=== PATIENT | male | born 1980 | race Caucasian/White ===

== ENCOUNTER 2020-12-12 10:31 | Emergency (ER) | payer BC ==
[2020-12-12 10:40] VITALS: TEMP 97.9
[2020-12-12] MEDS ORDERED: SODIUM CHLORIDE 0.9% 1,000 ML IV STA (11:09)
[2020-12-12] MEDS ORDERED: KETOROLAC 15 MG/ML 1 ML VIAL IVP STA (11:09)
[2020-12-12 11:33] LABS: Basophils # (A) 0.1 k/uL (0-0.2); Basophils % (A) 1 %; Eosinophils # (A) 0.1 k/uL (0-0.7); Eosinophils % (A) 2 %; HCT 44.9 % (39.0-53.0); HGB 15.7 gm/dL (13.0-17.5); Lymphocytes # (A) 1.7 k/uL (1.0-4.8); Lymphocytes % (A) 25 %; MCH 31.8 pg (25.0-35.0); MCV 90.9 fL (80.0-100.0); Mean Platelet Volume 7.4; Monocytes # (A) 0.3 k/uL (0-1.0); Monocytes % (A) 4 %; Neutrophils # (A) 4.4 k/uL (1.3-7.7); Neutrophils % (A) 67 %; Platelet Count 213 k/uL (150-450); RBC 4.94 m/uL (4.30-5.90); RDW 12.9 % (11.5-15.5); WBC 6.5 k/uL (3.8-10.6)
--- NOTE | 2020-12-12 11:40 | ED ---
General Adult HPI - General Chief complaint: Abdominal Pain Stated complaint: Abdominal Pain Time Seen by Provider: 12/12/20 10:40 Source: patient, RN notes reviewed, old records reviewed Mode of arrival: ambulatory Limitations: no limitations - History of Present Illness Initial comments: This is a 39-year-old male presents emergency Department complaining of right- sided abdominal pain starting in the flank going down to his testicle. Patient states started 1 hour prior to arrival. Patient states it was sudden onset. Patient denies any vomiting but states he is very nauseated. Patient also is states that within the last 5 minutes prior to my arrival symptoms greatly decrease in his pain is only a 3 out of 10. Patient denies any chest pain difficult breathing shortness of breath per patient states any diarrhea. Patient denies any pain to palpation. Patient denies any similar symptoms in the past. Patient states he has no medical problems. Patient denies any history of kidney stones. Patient denies any dysuria hematuria urinary fr equency. - Related Data Allergies Allergy/AdvReac Type Severity Reaction Status Date / Time naproxen [From Aleve] Allergy Rash/Hives Verified 12/12/20 10:40 Review of Systems ROS Statement: Those systems with pertinent positive or pertinent negative responses have been documented in the HPI. ROS Other: All systems not noted in ROS Statement are negative. Past Medical History Past Medical History: No Reported History History of Any Multi-Drug Resistant Organisms: None Reported Past Surgical History: No Surgical Hx Reported Past Psychological History: No Psychological Hx Reported Smoking Status: Never smoker Past Alcohol Use History: None Reported Past Drug Use History: None Reported General Exam - General Exam Comments Initial Comments: GENERAL: Patient is well-developed and well-nourished. Patient is nontoxic and well- hydrated and is in mild distress. ENT: Neck is soft and supple. No significant lymphadenopathy is noted. Oropharynx is clear. Moist mucous membranes. Neck has full range of motion without el iciting any pain. EYES: The sclera were anicteric and conjunctiva were pink and moist. Extraocular movements were intact and pupils were equal round and reactive to light. Eyelids were unremarkable. PULMONARY: Unlabored respirations. Good breath sounds bilaterally. No audible rales rhonchi or wheezing was noted. CARDIOVASCULAR: There is a regular rate and rhythm without any murmurs gallops or rubs. ABDOMEN: Soft and nontender with normal bowel sounds. GENITALIA: On examination of his scrotum and testicle is in no abnormalities and no significant tenderness SKIN: Skin is clear with no lesions or rashes and otherwise unremarkable. NEUROLOGIC: Patient is alert and oriented x3. Cranial nerves II through XII are grossly intact. Motor and sensory are also intact. Normal speech, volume and content. Symmetrical smile. MUSCULOSKELETAL: Normal extremities with adequate strength and full range of motion. LYMPHATICS: No significant lymphadenopathy is noted PSYCHIATRIC: Normal psychiatric evaluation. Limitations: no limitations Course Vital Signs 12/12/20 10:37 Temperature 97.9 F Pulse Rate 56 L Respiratory 24 Rate Blood Pressure 193/89 O2 Sat by Pulse 98 Oximetry Medical Decision Making - Medical Decision Making CAT scan of the abdomen and pelvis shows a 3 mm stone that is passed into the bladder. Patient does have some mild hydro-on the right. Patient is symptom- free at this stage. - Lab Data Result diagrams: 12/12/20 11:22 12/12/20 11:22 Lab Results 12/12/20 12/12/20 12/12/20 Range/Units 11:22 11:22 11:22 WBC 6.5 (3.8-10.6) k/uL RBC 4.94 (4.30-5.90) m/uL Hgb 15.7 (13.0-17.5) gm/dL Hct 44.9 (39.0-53.0) % MCV 90.9 (80.0-100.0) fL MCH 31.8 (25.0-35.0) pg MCHC 35.0 (31.0-37.0) g/dL RDW 12.9 (11.5-15.5) % Plt Count 213 (150-450) k/uL MPV 7.4 Neutrophils % 67 % Lymphocytes % 25 % Monocytes % 4 % Eosinophils % 2 % Basophils % 1 % Neutrophils # 4.4 (1.3-7.7) k/uL Lymphocytes # 1.7 (1.0-4.8) k/uL Monocytes # 0.3 (0-1.0) k/uL Eosinophils # 0.1 (0-0.7) k/uL Basophils # 0.1 (0-0.2) k/uL Sodium 141 (137-145) mmol/L Potassium 3.8 (3.5-5.1) mmol/L Chloride 108 H (98-107) mmol/L Carbon Dioxide 23 (22-30) mmol/L Anion Gap 10 mmol/L BUN 8 L (9-20) mg/dL Creatinine 0.82 (0.66-1.25) mg/dL Est GFR (CKD-EPI)AfAm >90 (>60 ml/min/1.73 sqM) Est GFR (CKD-EPI)NonAf >90 (>60 ml/min/1.73 sqM) Glucose 167 H (74-99) mg/dL Calcium 9.3 (8.4-10.2) mg/dL Total Bilirubin 0.8 (0.2-1.3) mg/dL AST 55 (17-59) U/L ALT 48 (4-49) U/L Alkaline Phosphatase 63 (38-126) U/L Total Protein 7.8 (6.3-8.2) g/dL Albumin 4.6 (3.5-5.0) g/dL Amylase 84 (30-110) U/L Lipase 210 (23-300) U/L Urine Color Yellow Urine Appearance Cloudy (Clear) Urine pH 6.5 (5.0-8.0) Ur Specific [place] 1.023 (1.001-1.035) Urine Protein 1+ H (Negative) Urine Glucose (UA) Negative (Negative) Urine Ketones Negative (Negative) Urine Blood Large H (Negative) Urine Nitrite Negative (Negative) Urine Bilirubin Negative (Negative) Urine Urobilinogen <2.0 (<2.0) mg/dL Ur Leukocyte Esterase Negative (Negative) Urine RBC >182 H (0-5) /hpf Urine WBC 1 (0-5) /hpf Amorphous Sediment Rare H (None) /hpf Urine Bacteria Rare H (None) /hpf Urine Mucus Many H (None) /hpf Disposition Clinical Impression: Kidney stone Disposition: HOME SELF-CARE Condition: Good Instructions (If sedation given, give patient instructions): Kidney Stones (ED) Is patient prescribed a controlled substance at d/c from ED?: No Referrals: None,Stated [Primary Care Provider] - 1-2 days Time of Disposition: 12:16
[2020-12-12 11:46] LABS: ALT 48 U/L (4-49); African American GFR (CKD) >90 (>60 ml/min/1.73 sqM); Albumin 4.6 g/dL (3.5-5.0); Amylase 84 U/L (30-110); Anion Gap 10 mmol/L; Blood Urea Nitrogen 8 mg/dL (9-20); Calcium 9.3 mg/dL (8.4-10.2); Carbon Dioxide 23 mmol/L (22-30); Chloride 108 mmol/L (98-107); Glucose 167 mg/dL (74-99); Lipase 210 U/L (23-300); Non-African American GFR(CKD) >90 (>60 ml/min/1.73 sqM); Sodium 141 mmol/L (137-145); Total Bilirubin 0.8 mg/dL (0.2-1.3); Total Protein 7.8 g/dL (6.3-8.2)
--- NOTE | 2020-12-12 11:49 | XR ---
EXAMINATION TYPE: XR KUB DATE OF EXAM: 12/12/2020 COMPARISON: NONE HISTORY: Pain TECHNIQUE: Single supine KUB image of the abdomen is obtained FINDINGS: Small bowel demonstrates no evidence for dilatation or air fluid levels. Gas and fecal material is seen in non-distended colon. No convincing evidence for pneumoperitoneum. No unusual calcifications. The lung bases are clear. The osseous structures are intact. IMPRESSION: 1. Overall nonobstructive bowel gas pattern.
[2020-12-12 11:52] LABS: AST 55 U/L (17-59); Alkaline Phosphatase 63 U/L (38-126); Potassium 3.8 mmol/L (3.5-5.1)
--- NOTE | 2020-12-12 11:52 | CT ---
EXAMINATION TYPE: CT abdomen pelvis wo con DATE OF EXAM: 12/12/2020 COMPARISON: none HISTORY: Right sided pain with urination changes CT DLP: 1297 mGycm Examination of the solid and hollow viscera is limited given the lack of contrast. FINDINGS: LUNG BASES: No evidence for nodule. No evidence for infiltrate. LIVER/GB: Fatty liver. The gallbladder is unremarkable. No space-occupying hepatic lesion. PANCREAS: No pancreatic mass identified. No inflammatory process seen. SPLEEN: No evidence for splenomegaly. No intrasplenic lesions seen. ADRENALS: No adrenal nodules identified. No evidence for thickening. KIDNEYS: No evidence for renal mass. Mild right-sided hydronephrosis secondary to a passed 3 mm calcu hoang which resides within the urinary bladder. No additional calculi seen. BOWEL: Appendix has a normal appearance. No evidence of bowel obstruction. No inflammatory process. Lymph nodes: No evidence for adenopathy greater than 1 cm. Abdominal aorta: Atheromatous changes seen. No evidence for aneurysm. Genital organs: No significant abnormality. Other: No significant abnormality. IMPRESSION: Mild right-sided hydronephrosis secondary to a passed 3 mm calculus which resides within the urinary bladder. No additional calculi seen.
[2020-12-12 11:53] LABS: Amorphous Sediment,Urine Rare /hpf; Appearance,Urine Cloudy (Clear); Bacteria,Urine Rare /hpf; Bilirubin,Urine Negative (Negative); Blood,Urine Large (Negative); Color,Urine Yellow; Glucose,Urine (UA) Negative (Negative); Ketones,Urine Negative (Negative); Leukocyte Esterase,Urine Negative (Negative); Mucus,Urine Many /hpf; Nitrite,Urine Negative (Negative); PH, Urine 6.5 (5.0-8.0); Protein,Urine 1+ (Negative); RBC,Urine >182 /hpf (0-5); Specific Gravity,Urine 1.023 (1.001-1.035); Urobilinogen,Urine <2.0 mg/dL (<2.0); WBC,Urine 1 /hpf (0-5)
[2020-12-12 12:31] VITALS: BP 133/88; PULSE 64; RESP 18
== END 2020-12-12 12:30 | disposition home or self-care (01) ==
LOC: EC 10:31
DX: N20.0 Calculus of kidney (principal)
CPT/HCPCS: 36415; 80053; 82150; 83690; 85025; 81001; 74018; 74176; 99284; 96374; 96361; J1885

== ENCOUNTER 2022-02-12 14:40 | Inpatient (IN) | payer BC ==
[2022-02-12] MEDS ORDERED: SODIUM CHLORIDE 0.9% 1,000 ML IV STA (15:28)
[2022-02-12] MEDS ORDERED: HYDROmorphone 0.5 MG/0.5 ML SYRINGE IVP STA (15:28)
--- NOTE | 2022-02-12 15:31 | ED ---
Abdominal Pain HPI - General Chief Complaint: Abdominal Pain Stated Complaint: Abd pain Time Seen by Provider: 02/12/22 15:22 Source: patient Mode of arrival: ambulatory Limitations: no limitations - History of Present Illness Initial Comments: Well-appearing 41-year-old male presents with right lower quadrant abdominal pain since yesterday. States started with generalized lower abdominal pain a couple days ago. States did have a hard bowel movement and thought he was constipated so he used Metamucil. No nausea or vomiting and has had a couple episodes of diarrhea since taking Metamucil. Developed a fever last night. States that he does have a history of kidney stones but this does not feel the same. Did take Tylenol earlier this morning. Patient is a nonsmoker. MD Complaint: abdominal pain -: days(s) (2) Location: RUQ Radiation: RUQ Severity scale (1-10): 2 Quality: cramping Consistency: intermittent Worsens With: other (palpation) Associated Symptoms: fever, chills, constipation - Related Data Home Medications Medication Instructions Recorded Confirmed No Known Home Medications 02/12/22 02/12/22 Allergies Allergy/AdvReac Type Severity Reaction Status Date / Time naproxen [From Aleve] Allergy Rash/Hives Verified 02/12/22 17:35 Sulfa (Sulfonamide Allergy Rash/Hives Verified 02/12/22 17:35 Antibiotics) Review of Systems ROS Statement: Those systems with pertinent positive or pertinent negative responses have been documented in the HPI. ROS Other: All systems not noted in ROS Statement are negative. Past Medical History Past Medical History: No Reported History History of Any Multi-Drug Resistant Organisms: None Reported Past Surgical History: No Surgical Hx Reported Past Psychological History: No Psychological Hx Reported Smoking Status: Never smoker Past Alcohol Use History: None Reported Past Drug Use History: None Reported General Exam Limitations: no limitations General appearance: alert, in no apparent distress Head exam: Present: atraumatic Eye exam: Absent: scleral icterus, conjunctival injection, periorbital swelling Neck exam: Present: normal inspection, full ROM. Absent: tenderness, meningismus, lymphadenopathy Respiratory exam: Present: normal lung sounds bilaterally. Absent: respiratory distress, wheezes, rales, rhonchi, stridor, chest wall tenderness, accessory mu scle use Cardiovascular Exam: Present: regular rate GI/Abdominal exam: Present: soft, tenderness (Right lower quadrant). Absent: distended, guarding, rigid Extremities exam: Present: full ROM, normal capillary refill. Absent: tenderness, pedal edema Back exam: Present: normal inspection, full ROM. Absent: tenderness, CVA tenderness (R), CVA tenderness (L), rash noted Neurological exam: Present: alert, oriented X3 Psychiatric exam: Present: normal affect, normal mood Skin exam: Present: warm, dry, normal color. Absent: cyanosis, diaphoretic, pallor Course Vital Signs 02/12/22 02/12/22 02/12/22 15:04 15:58 16:58 Temperature 99.6 F Pulse Rate 70 84 88 Respiratory 16 18 19 Rate Blood Pressure 212/116 171/94 173/93 O2 Sat by Pulse 98 98 97 Oximetry Medical Decision Making - Medical Decision Making CT the abdomen and pelvis shows appendix within normal limits basis to come to the right lower quadrant. There is focal prominence of the sigmoid colon with a few diverticula with [id number] wall thickening. Ill-defined fluid and fat stranding in the pelvis with foci of adjacent free air, no fluid collection or abscess. Radiologist's impression severe acute colitis suspected diverticulitis, with evidence of free air. White count of 19.1. Electrolytes are unremarkable. Covid swab negative. Results discussed with patient he is agreeable to admission. Dr. Sabillon notified and agreeable to admission with Dr. Beach on consult. Patiente states Dr. Beach is his listed primary care doctor however he has not yet seen Dr. Beach. Case discussed with Dr. Heller. - Lab Data Result diagrams: 02/12/22 15:30 02/12/22 15:30 Lab Results 02/12/22 02/12/22 02/12/22 Range/Units 15:30 15:30 15:30 WBC 19.1 H (3.8-10.6) k/uL RBC 5.12 (4.30-5.90) m/uL Hgb 15.9 (13.0-17.5) gm/dL Hct 45.9 (39.0-53.0) % MCV 89.6 (80.0-100.0) fL MCH 31.0 (25.0-35.0) pg MCHC 34.6 (31.0-37.0) g/dL RDW 12.4 (11.5-15.5) % Plt Count 193 (150-450) k/uL MPV 8.4 Neutrophils % 88 % Lymphocytes % 6 % Monocytes % 4 % Eosinophils % 1 % Basophils % 0 % Neutrophils # 16.9 H (1.3-7.7) k/uL Lymphocytes # 1.1 (1.0-4.8) k/uL Monocytes # 0.8 (0-1.0) k/uL Eosinophils # 0.1 (0-0.7) k/uL Basophils # 0.1 (0-0.2) k/uL PT 10.6 (9.0-12.0) sec INR 1.0 (<1.2) APTT 23.4 (22.0-30.0) sec Sodium 140 (137-145) mmol/L Potassium 3.6 (3.5-5.1) mmol/L Chloride 101 (98-107) mmol/L Carbon Dioxide 23 (22-30) mmol/L Anion Gap 16 mmol/L BUN 10 (9-20) mg/dL Creatinine 0.85 (0.66-1.25) mg/dL Est GFR (CKD-EPI)AfAm >90 (>60 ml/min/1.73 sqM) Est GFR (CKD-EPI)NonAf >90 (>60 ml/min/1.73 sqM) Glucose 136 H (74-99) mg/dL Plasma Lactic Acid Farrukh (0.7-2.0) mmol/L Calcium 9.1 (8.4-10.2) mg/dL Total Bilirubin 1.4 H (0.2-1.3) mg/dL AST 27 (17-59) U/L ALT 37 (4-49) U/L Alkaline Phosphatase 47 (38-126) U/L Total Protein 8.3 H (6.3-8.2) g/dL Albumin 5.0 (3.5-5.0) g/dL Amylase 38 (30-110) U/L Lipase 25 (23-300) U/L Urine Color Urine Appearance (Clear) Urine pH (5.0-8.0) Ur Specific [place] (1.001-1.035) Urine Protein (Negative) Urine Glucose (UA) (Negative) Urine Ketones (Negative) Urine Blood (Negative) Urine Nitrite (Negative) Urine Bilirubin (Negative) Urine Urobilinogen (<2.0) mg/dL Ur Leukocyte Esterase (Negative) Urine RBC (0-5) /hpf Urine WBC (0-5) /hpf Ur Squamous Epith Cells (0-4) /hpf Amorphous Sediment (None) /hpf Urine Mucus (None) /hpf Influenza Type A (PCR) (Not Detectd) Influenza Type B (PCR) (Not Detectd) RSV (PCR) (Not Detectd) SARS-CoV-2 (PCR) (Not Detectd) 02/12/22 02/12/22 02/12/22 Range/Units 15:30 16:01 16:05 WBC (3.8-10.6) k/uL RBC (4.30-5.90) m/uL Hgb (13.0-17.5) gm/dL Hct (39.0-53.0) % MCV (80.0-100.0) fL MCH (25.0-35.0) pg MCHC (31.0-37.0) g/dL RDW (11.5-15.5) % Plt Count (150-450) k/uL MPV Neutrophils % % Lymphocytes % % Monocytes % % Eosinophils % % Basophils % % Neutrophils # (1.3-7.7) k/uL Lymphocytes # (1.0-4.8) k/uL Monocytes # (0-1.0) k/uL Eosinophils # (0-0.7) k/uL Basophils # (0-0.2) k/uL PT (9.0-12.0) sec INR (<1.2) APTT (22.0-30.0) sec Sodium (137-145) mmol/L Potassium (3.5-5.1) mmol/L Chloride (98-107) mmol/L Carbon Dioxide (22-30) mmol/L Anion Gap mmol/L BUN (9-20) mg/dL Creatinine (0.66-1.25) mg/dL Est GFR (CKD-EPI)AfAm (>60 ml/min/1.73 sqM) Est GFR (CKD-EPI)NonAf (>60 ml/min/1.73 sqM) Glucose (74-99) mg/dL Plasma Lactic Acid Farrukh 1.4 (0.7-2.0) mmol/L Calcium (8.4-10.2) mg/dL Total Bilirubin (0.2-1.3) mg/dL AST (17-59) U/L ALT (4-49) U/L Alkaline Phosphatase (38-126) U/L Total Protein (6.3-8.2) g/dL Albumin (3.5-5.0) g/dL Amylase (30-110) U/L Lipase (23-300) U/L Urine Color Yellow Urine Appearance Clear (Clear) Urine pH 5.5 (5.0-8.0) Ur Specific [place] 1.037 H (1.001-1.035) Urine Protein 1+ H (Negative) Urine Glucose (UA) Negative (Negative) Urine Ketones Negative (Negative) Urine Blood Negative (Negative) Urine Nitrite Negative (Negative) Urine Bilirubin Negative (Negative) Urine Urobilinogen <2.0 (<2.0) mg/dL Ur Leukocyte Esterase Negative (Negative) Urine RBC 1 (0-5) /hpf Urine WBC 2 (0-5) /hpf Ur Squamous Epith Cells <1 (0-4) /hpf Amorphous Sediment Rare H (None) /hpf Urine Mucus Many H (None) /hpf Influenza Type A (PCR) Not Detected (Not Detectd) Influenza Type B (PCR) Not Detected (Not Detectd) RSV (PCR) Not Detected (Not Detectd) SARS-CoV-2 (PCR) Not Detected (Not Detectd) Disposition Clinical Impression: Diverticulitis, Peritoneal free air Disposition: ADMITTED IP TO THIS [facility] Decision Date: 02/12/22 Decision Time: 17:08
[2022-02-12 15:54] LABS: Basophils # (A) 0.1 k/uL (0-0.2); Basophils % (A) 0 %; Eosinophils # (A) 0.1 k/uL (0-0.7); Eosinophils % (A) 1 %; HCT 45.9 % (39.0-53.0); HGB 15.9 gm/dL (13.0-17.5); Lymphocytes # (A) 1.1 k/uL (1.0-4.8); Lymphocytes % (A) 6 %; MCHC 34.6 g/dL (31.0-37.0); MCV 89.6 fL (80.0-100.0); Mean Platelet Volume 8.4; Monocytes # (A) 0.8 k/uL (0-1.0); Monocytes % (A) 4 %; Neutrophils # (A) 16.9 k/uL (1.3-7.7); Neutrophils % (A) 88 %; Platelet Count 193 k/uL (150-450); RBC 5.12 m/uL (4.30-5.90); RDW 12.4 % (11.5-15.5); WBC 19.1 k/uL (3.8-10.6)
[2022-02-12 16:05] LABS: ALT 37 U/L (4-49); AST 27 U/L (17-59); African American GFR (CKD) >90 (>60 ml/min/1.73 sqM); Alkaline Phosphatase 47 U/L (38-126); Amylase 38 U/L (30-110); Anion Gap 16 mmol/L; Blood Urea Nitrogen 10 mg/dL (9-20); Calcium 9.1 mg/dL (8.4-10.2); Carbon Dioxide 23 mmol/L (22-30); Chloride 101 mmol/L (98-107); Glucose 136 mg/dL (74-99); Lipase 25 U/L (23-300); Non-African American GFR(CKD) >90 (>60 ml/min/1.73 sqM); Potassium 3.6 mmol/L (3.5-5.1); Sodium 140 mmol/L (137-145); Total Bilirubin 1.4 mg/dL (0.2-1.3); Total Protein 8.3 g/dL (6.3-8.2)
[2022-02-12 16:10] LABS: Partial Thromboplastin Time 23.4 sec (22.0-30.0); Prothrombin Time 10.6 sec (9.0-12.0)
[2022-02-12 16:17] LABS: Amorphous Sediment,Urine Rare /hpf; Appearance,Urine Clear (Clear); Bilirubin,Urine Negative (Negative); Blood,Urine Negative (Negative); Color,Urine Yellow; Glucose,Urine (UA) Negative (Negative); Ketones,Urine Negative (Negative); Leukocyte Esterase,Urine Negative (Negative); Mucus,Urine Many /hpf; Nitrite,Urine Negative (Negative); PH, Urine 5.5 (5.0-8.0); Protein,Urine 1+ (Negative); RBC,Urine 1 /hpf (0-5); Specific Gravity,Urine 1.037 (1.001-1.035); Squamous Epithelial Cell,Urine <1 /hpf (0-4); Urobilinogen,Urine <2.0 mg/dL (<2.0); WBC,Urine 2 /hpf (0-5)
--- NOTE | 2022-02-12 16:38 | CT ---
EXAMINATION TYPE: CT abdomen pelvis wo con DATE OF EXAM: 02/12/2022 HISTORY: Low pelvic pain, right sided abdominal pain. History of kidney stones. CT DLP: 1267 mGycm. Automated Exposure Control for Dose Reduction was Utilized. TECHNIQUE: CT scan of the abdomen and pelvis is performed without oral or IV contrast. COMPARISON: CT abdomen and pelvis December 12, 2020 FINDINGS: Within the limitations of a non-contrast study, the following observations are made. LUNG BASES: No significant abnormality is appreciated. LIVER/GB: Heterogeneous hypodense appearance of liver consistent with diffuse fatty infiltration rede monstrated. No new biliary dilatation. PANCREAS: No significant abnormality is seen. SPLEEN: No significant abnormality is seen. ADRENALS: No significant abnormality is seen. KIDNEYS: Punctate 1 to 2 mm right renal calculus may be present at UPJ axial image 78 corresponding t o coronal image 55 causing mild to minimal right-sided hydronephrosis. No additional renal calculi. N o left-sided hydronephrosis. BOWEL: Suboptimal evaluation of bowel without enteric contrast. No suspicious small or large bowel di latation is seen. Appendix appears within normal limits for base of cecum in the right lower quadrant . There is focal prominence of the sigmoid colon with a few diverticula and mild/moderate wall thicke cameron. There is severe ill-defined fluid and fat stranding in the pelvis with foci of adjacent free ai r. No well-formed fluid collection or abscess. GENITAL ORGANS: No gross abnormality seen. LYMPH NODES: No greater than 1cm abdominal or pelvic lymph nodes are appreciated. OSSEOUS STRUCTURES: No significant abnormality is seen. OTHER: No significant additional abnormality is seen. IMPRESSION: There is severe acute colitis suspected diverticulitis in the sigmoid colon of the pelvis with free air or evidence of perforation. Emergent Surgical consult is advised.
[2022-02-12] MEDS ORDERED: metroNIDAZOLE-NS PMX 500 MG in SALINE 1 100ML.BAG IVPB STA (16:51)
[2022-02-12] MEDS ORDERED: NALOXONE 0.4 MG/ML 1 ML VIAL IV PRN (17:20)
[2022-02-12] MEDS ORDERED: ONDANSETRON 4 MG/2 ML VIAL IVP PRN (18:07)
[2022-02-12] MEDS: SODIUM CHLORIDE 0.9% 1,000 ML IV SCH (18:24)
[2022-02-12] MEDS: PANTOPRAZOLE 40 MG/10 ML VIAL IV SCH (18:24)
[2022-02-12] MEDS: HYDROmorphone 0.5 MG/0.5 ML SYRINGE IVP PRN ×2 (18:33→21:41)
[2022-02-13] MEDS: metroNIDAZOLE-NS PMX 500 MG in SALINE 1 100ML.BAG IVPB SCH ×2 (02:23→10:06)
[2022-02-13] MEDS: HYDROmorphone 0.5 MG/0.5 ML SYRINGE IVP PRN ×2 (04:23→10:45)
[2022-02-13] MEDS ORDERED: ACETAMINOPHEN TAB 325 MG TAB PO PRN (04:43)
[2022-02-13 08:41] LABS: Basophils % (A) 0 %; Eosinophils % (A) 0 %; HCT 43.4 % (39.0-53.0); Lymphocytes # (A) 1.6 k/uL (1.0-4.8); Lymphocytes % (A) 9 %; MCH 31.6 pg (25.0-35.0); MCHC 34.6 g/dL (31.0-37.0); MCV 91.3 fL (80.0-100.0); Mean Platelet Volume 8.5; Monocytes # (A) 0.9 k/uL (0-1.0); Monocytes % (A) 5 %; Neutrophils # (A) 14.8 k/uL (1.3-7.7); Neutrophils % (A) 84 %; Platelet Count 183 k/uL (150-450); RBC 4.75 m/uL (4.30-5.90); RDW 12.1 % (11.5-15.5); WBC 17.5 k/uL (3.8-10.6)
[2022-02-13 08:50] LABS: African American GFR (CKD) >90 (>60 ml/min/1.73 sqM); Anion Gap 10 mmol/L; Blood Urea Nitrogen 9 mg/dL (9-20); Calcium 8.2 mg/dL (8.4-10.2); Carbon Dioxide 25 mmol/L (22-30); Chloride 102 mmol/L (98-107); Glucose 148 mg/dL (74-99); Non-African American GFR(CKD) >90 (>60 ml/min/1.73 sqM); Potassium 3.6 mmol/L (3.5-5.1); Sodium 137 mmol/L (137-145)
[2022-02-13] MEDS: PANTOPRAZOLE 40 MG/10 ML VIAL IV SCH (10:05)
[2022-02-13] MEDS: PIPERACILLIN-TAZOBACTAM 3.375 GM in SODIUM CHLORIDE 0.9% 100 ML IVPB SCH ×3 (10:27→23:48)
--- NOTE | 2022-02-13 10:38 | P.GSCN ---
History of Present Illness Consult date: 02/13/22 History of present illness: CHIEF COMPLAINT: Abdominal pain HISTORY OF PRESENT ILLNESS: This is a 41-year-old who presented to the hospital with complaints of abdominal pain along the belt line. Patient describes the pain as crampy and would occur like 3-4 times per hour. Patient states the pain was located across the lower belt line along the left lower quadrant lower mid abdomen right lower quadrant and into the right side. He has been having fevers. He did have a temp of 100.1 with a white count of 19.1. He's also reporting diarrhea and flatus. No blood in his stools. Patient also does report pressure in the lower abdomen when he urinates. Initially he rated his pain as 6 out of 10 on admission and pain is decreased to 4 out of 10. He had a computed tomography scan of the abdomen and pelvis that demonstrated severe acute colitis suspected diverticulitis in the sigmoid colon of the pelvis with free air or evidence of perforation. Patient denies any history of diverticulitis. Denies any past history of colonoscopy. Denies any nausea and vomiting. PAST MEDICAL HISTORY: none PAST SURGICAL HISTORY: Vasectomy MEDICATIONS: See below ALLERGIES: See below SOCIAL HISTORY: No illicit drug use. REVIEW OF SYSTEMS: CONSTITUTIONAL: Denies fever or chills. HEENT: Denies blurred vision, vision changes, or eye pain. Denies hemoptysis CARDIOVASCULAR: Denies chest pain or pressure. RESPIRATORY: No shortness of breath. GASTROINTESTINAL: See HPI for pertinent findings HEMATOLOGIC: Denies bleeding disorders. GENITOURINARY: Denies any blood in urine or increased urinary frequency. SKIN: Denies pruitis. Denies rash. PHYSICAL EXAM: VITAL SIGNS: Reviewed GENERAL: Well-developed in no acute distress. HEENT: No sclera icterus. Extraocular movements grossly intact. Moist buccal mucosa. Head is atraumatic, normocephalic. No nasal drainage. ABDOMEN: Soft. Nondistended. Tenderness to palpation in the left lower quadrant lower mid abdomen and right lower quadrant NEUROLOGIC: Alert and oriented. Cranial nerves II through XII grossly intact. LABORATORY DATA: WBC 19.1 down to 17.5 Hgb 15 platelets 183 Sodium 137 potassium 3.6 creatinine 0.82 Influenza, RSV and COVID-19 not detected Urinalysis negative for infection IMAGING: Computed tomography scan of the abdomen and pelvis that demonstrated severe acute colitis suspected diverticulitis in the sigmoid colon of the pelvis with free air or evidence of perforation. ASSESSMENT: 1. Acute sigmoid diverticulitis of sigmoid colon with perforation PLAN: -Further recommendations forthcoming per surgeon -Okay to resume clear liquid diet -Continue IV antibiotics -Continue IV fluids -Continue supportive care -Continue pain medication as needed Thank you for this consultation Physician Cpc Coder note has been reviewed by physician. Signing provider agrees with the documented findings, assessment, and plan of care. 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 Based on total visit time, I have performed more than 50% of the visit. As above: Patient with 2 day history of suprapubic abdominal pain. Slightly more on the right than the left. CAT scan reviewed. Patient has evidence of acute sigmoid diverticulitis with pericolonic foci of gas. Patient does feel better today. White blood cell count improving. Abdominal exam without peritonitis. Lower abdominal tenderness is present. Continue antibiotics. May start clear liquids. We'll follow closely. Past Medical History Past Medical History: No Reported History Additional Past Medical History / Comment(s): kidney stone 2020 History of Any Multi-Drug Resistant Organisms: None Reported Past Surgical History: No Surgical Hx Reported Past Anesthesia/Blood Transfusion Reactions: No Reported Reaction Past Psychological History: No Psychological Hx Reported Smoking Status: Former smoker Past Alcohol Use History: None Reported Past Drug Use History: None Reported Medications and Allergies Home Medications Medication Instructions Recorded Confirmed Type No Known Home Medications 02/12/22 02/12/22 History Allergies Allergy/AdvReac Type Severity Reaction Status Date / Time naproxen [From Aleve] Allergy Rash/Hives Verified 02/12/22 17:35 Sulfa (Sulfonamide Allergy Rash/Hives Verified 02/12/22 17:35 Antibiotics) Surgical - Exam Vital Signs Temp Pulse Resp BP Pulse Ox 99.6 F 70 16 212/116 98 02/12/22 15:04 02/12/22 15:04 02/12/22 15:04 02/12/22 15:04 02/12/22 15:04 Results - Labs 02/13/22 08:22 02/13/22 08:22 Abnormal Lab Results - Last 24 Hours (Table) 02/12/22 02/12/22 02/12/22 Range/Units 15:30 15:30 16:05 WBC 19.1 H (3.8-10.6) k/uL Neutrophils # 16.9 H (1.3-7.7) k/uL Glucose 136 H (74-99) mg/dL Calcium (8.4-10.2) mg/dL Total Bilirubin 1.4 H (0.2-1.3) mg/dL Total Protein 8.3 H (6.3-8.2) g/dL Ur Specific [place] 1.037 H (1.001-1.035) Urine Protein 1+ H (Negative) Amorphous Sediment Rare H (None) /hpf Urine Mucus Many H (None) /hpf 02/13/22 02/13/22 Range/Units 08:22 08:22 WBC 17.5 H (3.8-10.6) k/uL Neutrophils # 14.8 H (1.3-7.7) k/uL Glucose 148 H (74-99) mg/dL Calcium 8.2 L (8.4-10.2) mg/dL Total Bilirubin (0.2-1.3) mg/dL Total Protein (6.3-8.2) g/dL Ur Specific [place] (1.001-1.035) Urine Protein (Negative) Amorphous Sediment (None) /hpf Urine Mucus (None) /hpf Diabetes panel 02/12/22 02/13/22 Range/Units 15:30 08:22 Sodium 140 137 (137-145) mmol/L Potassium 3.6 3.6 (3.5-5.1) mmol/L Chloride 101 102 (98-107) mmol/L Carbon Dioxide 23 25 (22-30) mmol/L BUN 10 9 (9-20) mg/dL Creatinine 0.85 0.82 (0.66-1.25) mg/dL Glucose 136 H 148 H (74-99) mg/dL Calcium 9.1 8.2 L (8.4-10.2) mg/dL AST 27 (17-59) U/L ALT 37 (4-49) U/L Alkaline Phosphatase 47 (38-126) U/L Total Protein 8.3 H (6.3-8.2) g/dL Albumin 5.0 (3.5-5.0) g/dL Calcium panel 02/12/22 02/13/22 Range/Units 15:30 08:22 Calcium 9.1 8.2 L (8.4-10.2) mg/dL Albumin 5.0 (3.5-5.0) g/dL Pituitary panel 02/12/22 02/13/22 Range/Units 15:30 08:22 Sodium 140 137 (137-145) mmol/L Potassium 3.6 3.6 (3.5-5.1) mmol/L Chloride 101 102 (98-107) mmol/L Carbon Dioxide 23 25 (22-30) mmol/L BUN 10 9 (9-20) mg/dL Creatinine 0.85 0.82 (0.66-1.25) mg/dL Glucose 136 H 148 H (74-99) mg/dL Calcium 9.1 8.2 L (8.4-10.2) mg/dL Adrenal panel 02/12/22 02/13/22 Range/Units 15:30 08:22 Sodium 140 137 (137-145) mmol/L Potassium 3.6 3.6 (3.5-5.1) mmol/L Chloride 101 102 (98-107) mmol/L Carbon Dioxide 23 25 (22-30) mmol/L BUN 10 9 (9-20) mg/dL Creatinine 0.85 0.82 (0.66-1.25) mg/dL Glucose 136 H 148 H (74-99) mg/dL Calcium 9.1 8.2 L (8.4-10.2) mg/dL Total Bilirubin 1.4 H (0.2-1.3) mg/dL AST 27 (17-59) U/L ALT 37 (4-49) U/L Alkaline Phosphatase 47 (38-126) U/L Total Protein 8.3 H (6.3-8.2) g/dL Albumin 5.0 (3.5-5.0) g/dL
--- NOTE | 2022-02-13 11:12 | P.CONS ---
History of Present Illness - Reason for Consult Consult date: 02/13/22 medical management - History of Present Illness Patient is a 41-year-old male with no significant past medical history presenting with abdominal pain. He claims that over the last 2 days, he has been having significant on and off lower abdominal pain bilaterally, squeezing, 6/10. He has also been having subjective fevers, chills at home. He denies any nausea, vomiting, or diarrhea. He denies any chest pain, shortness of breath. He has been having constipation recently. He denies any sick contacts or travel history. He has a history of kidney stones, and initially thought that he was having a kidney stone. He decided come to the emergency, and was found to have severe acute colitis, suspected diverticulitis in the sigmoid colon with free air or evidence of perforation noted on the CT abdomen and pelvis. Surgery was consulted. [facility] physicians has been consulted for medical management. Patient has had a temperature maximum of 100.1 Fahrenheit, otherwise hemodynamically stable. He was given pain medication, ceftriaxone, Flagyl in the ED. Patient seen and examined at bedside. Pertinent positives and negatives as discussed in HPI, a complete review of systems was performed and all other systems are negative. Vital signs reviewed General: nontoxic, no distress, appears at stated age Derm: warm, dry Head: atraumatic, normocephalic, symmetric Eyes: EOMI, no lid lag, anicteric sclera, pupils equal round reactive to light ENT: Nose and ears atraumatic, no thrush, no pharyngeal erythema Neck: supple Mouth: no lip lesion, mucus membranes moist Cardiovascular: S1S2 reg, no murmur, no edema Lungs: clear to auscultation bilateral, no rhonchi, no rales, no wheeze, no accessory muscle use Abdominal: soft, tender to palpation in the lower quadrants, no guarding, no appreciable organomegaly, normal bowel sounds Ext: no gross muscle atrophy, muscle strength muscle strength 5 out of 5 in all 4 extremities, no contractures Neuro: CN II-XII grossly intact, light touch intact all 4 extremities Psych: Alert, oriented, appropriate affect Assessment/Plan: Acute severe colitis Sigmoid diverticulitis with perforation Leukocytosis Abdominal pain Constipation -Patient on Zosyn -Started on clear liquids for surgery -IV fluids No other chronic medical problems DVT prophylaxis -Subcu heparin Thank you for allowing us to participate in the care of this pleasant patient. Do not hesitate to contact us with questions. Someone can be reached from the [facility] hospitalist group all hours of the day at [phone] or via [employer]. Past Medical History Past Medical History: No Reported History Additional Past Medical History / Comment(s): kidney stone 2020 History of Any Multi-Drug Resistant Organisms: None Reported Past Surgical History: No Surgical Hx Reported Past Anesthesia/Blood Transfusion Reactions: No Reported Reaction Past Psychological History: No Psychological Hx Reported Smoking Status: Former smoker Past Alcohol Use History: None Reported Past Drug Use History: None Reported Medications and Allergies Home Medications Medication Instructions Recorded Confirmed Type No Known Home Medications 02/12/22 02/12/22 History Allergies Allergy/AdvReac Type Severity Reaction Status Date / Time naproxen [From Aleve] Allergy Rash/Hives Verified 02/12/22 17:35 Sulfa (Sulfonamide Allergy Rash/Hives Verified 02/12/22 17:35 Antibiotics) Physical Exam Vitals: Vital Signs Temp Pulse Pulse Resp BP BP Pulse Ox 02/13/22 07:59 98.3 F 80 15 146/85 93 L 02/13/22 02:00 99.9 F H 89 17 146/79 94 L 02/12/22 20:10 89 17 02/12/22 20:00 100.1 F H 89 17 164/85 96 02/12/22 19:28 99.5 F 85 19 168/85 97 02/12/22 16:58 88 19 173/93 97 02/12/22 15:58 84 18 171/94 98 02/12/22 15:04 99.6 F 70 16 212/116 98 Intake and Output 02/12/22 02/13/22 02/13/22 22:59 06:59 14:59 Other: # Voids 3 # Bowel Movements 1 Weight 117.934 kg Results CBC & Chem 7: 02/13/22 08:22 02/13/22 08:22 Labs: Abnormal Lab Results - Last 24 Hours (Table) 02/12/22 02/12/22 02/12/22 Range/Units 15:30 15:30 16:05 WBC 19.1 H (3.8-10.6) k/uL Neutrophils # 16.9 H (1.3-7.7) k/uL Glucose 136 H (74-99) mg/dL Calcium (8.4-10.2) mg/dL Total Bilirubin 1.4 H (0.2-1.3) mg/dL Total Protein 8.3 H (6.3-8.2) g/dL Ur Specific [place] 1.037 H (1.001-1.035) Urine Protein 1+ H (Negative) Amorphous Sediment Rare H (None) /hpf Urine Mucus Many H (None) /hpf 02/13/22 02/13/22 Range/Units 08:22 08:22 WBC 17.5 H (3.8-10.6) k/uL Neutrophils # 14.8 H (1.3-7.7) k/uL Glucose 148 H (74-99) mg/dL Calcium 8.2 L (8.4-10.2) mg/dL Total Bilirubin (0.2-1.3) mg/dL Total Protein (6.3-8.2) g/dL Ur Specific [place] (1.001-1.035) Urine Protein (Negative) Amorphous Sediment (None) /hpf Urine Mucus (None) /hpf
[2022-02-13] MEDS ORDERED: HYDROcodone/APAP 5-325MG 1 EACH TAB PO PRN (13:30)
[2022-02-13] MEDS: SODIUM CHLORIDE 0.9% 1,000 ML IV SCH ×2 (15:01→23:47)
[2022-02-13] MEDS: KETOROLAC 15 MG/ML 1 ML VIAL IVP SCH ×3 (15:01→23:46)
[2022-02-13] MEDS: HEPARIN SODIUM,PORCINE/PF 5,000 UNIT/0.5 ML SYRINGE SQ SCH ×2 (16:07→23:48)
[2022-02-14] MEDS: KETOROLAC 15 MG/ML 1 ML VIAL IVP SCH ×3 (05:46→18:40)
[2022-02-14] MEDS: HEPARIN SODIUM,PORCINE/PF 5,000 UNIT/0.5 ML SYRINGE SQ SCH ×2 (06:41→15:24)
[2022-02-14] MEDS: PIPERACILLIN-TAZOBACTAM 3.375 GM in SODIUM CHLORIDE 0.9% 100 ML IVPB SCH ×2 (06:44→15:24)
[2022-02-14 08:18] LABS: Basophils % (A) 0 %; Eosinophils % (A) 0 %; HGB 14.9 gm/dL (13.0-17.5); Lymphocytes # (A) 1.4 k/uL (1.0-4.8); Lymphocytes % (A) 13 %; MCH 31.6 pg (25.0-35.0); MCHC 34.6 g/dL (31.0-37.0); MCV 91.3 fL (80.0-100.0); Mean Platelet Volume 8.3; Monocytes # (A) 0.6 k/uL (0-1.0); Monocytes % (A) 6 %; Neutrophils # (A) 8.4 k/uL (1.3-7.7); Neutrophils % (A) 79 %; Platelet Count 189 k/uL (150-450); RBC 4.71 m/uL (4.30-5.90); WBC 10.7 k/uL (3.8-10.6)
[2022-02-14] MEDS: PANTOPRAZOLE 40 MG/10 ML VIAL IV SCH (08:27)
--- NOTE | 2022-02-14 09:21 | P.PN ---
Progress Note - Text Progress Note Date: 02/14/22 Patient still has quite a left lower quadrant pain. On exam vital signs are stable. Abdomen soft. There is some tenderness left lower quadrant. There is no rebound or guarding. Acute diverticulitis. Patient he received IV antibiotics. He will his diet advanced to full liquids.
[2022-02-14] MEDS: SODIUM CHLORIDE 0.9% 1,000 ML IV SCH (10:57)
--- NOTE | 2022-02-14 12:53 | P.PN ---
Subjective Progress Note Date: 02/14/22 Principal diagnosis: abdominal pain Hospital Course: 41-year-old male with no significant past medical history presenting with abdominal pain. Admitted for severe acute colitis, suspected diverticulitis in the sigmoid colon with free air or evidence of perforation noted on CT abdomen and pelvis. Surgery following. Some physicians has been consulted for medical management. Patient currently on IV Zosyn. Tolerating oral diet. Subjective: Patient seen and examined at bedside. No acute events overnight. He denies any significant abdominal pain. Denies any chest pain, shortness of breath, constipation, urinary complaints. He is having some diarrhea. He is able to tolerate clear liquids. Pertinent positives and negatives as discussed above, a complete review of systems was performed and all other systems are negative. Vitals Signs Reviewed. General: nontoxic, no distress, appears at stated age Derm: warm, dry Head: atraumatic, normocephalic, symmetric Eyes: EOMI, no lid lag, anicteric sclera Mouth: no lip lesion, mucus membranes moist Cardiovascular: S1S2 reg, no murmur Lungs: CTA bilateral, no rhonchi, no rales , no accessory muscle use Abdominal: soft, nontender to palpation, no guarding, no appreciable organomegaly Ext: no gross muscle atrophy, no edema, no contractures Neuro: CN II-XI grossly intact, no focal neuro deficits Psych: Alert, oriented, appropriate affect Assessment and Plan: Acute severe colitis Sigmoid diverticulitis with perforation Leukocytosis Abdominal pain -Patient on Zosyn -Surgery following -IV fluids -Able tolerate clear liquids, now on full liquids No other chronic medical problems DVT prophylaxis -Subcu heparin Thank you for allowing us to participate in the care of this pleasant patient. Do not hesitate to contact us with questions. Someone can be reached from the [facility] hospitalist group all hours of the day at [phone] or via [employer]. Objective - Vital Signs Vital signs: Vital Signs Temp 98.1 F 02/14/22 07:57 Pulse 72 02/14/22 07:57 Resp 17 02/14/22 07:57 BP 161/95 02/14/22 07:57 Pulse Ox 96 02/14/22 07:57 FiO2 Intake & Output 02/13/22 02/14/22 02/14/22 18:59 06:59 18:59 Other: # Voids 1 5 - Labs CBC & Chem 7: 02/14/22 07:42 02/13/22 08:22 Labs: Abnormal Lab Results - Last 24 Hours (Table) 02/14/22 Range/Units 07:42 WBC 10.7 H (3.8-10.6) k/uL Neutrophils # 8.4 H (1.3-7.7) k/uL Microbiology - Last 24 Hours (Table) 02/12/22 15:45 Blood Culture - Preliminary Blood No Growth after 24 hours 02/12/22 15:30 Blood Culture - Preliminary Blood No Growth after 24 hours
[2022-02-15] MEDS: HEPARIN SODIUM,PORCINE/PF 5,000 UNIT/0.5 ML SYRINGE SQ SCH ×4 (00:01→23:38)
[2022-02-15] MEDS: SODIUM CHLORIDE 0.9% 1,000 ML IV SCH ×2 (00:02→16:43)
[2022-02-15] MEDS: KETOROLAC 15 MG/ML 1 ML VIAL IVP SCH ×2 (00:02→05:10)
[2022-02-15] MEDS: PIPERACILLIN-TAZOBACTAM 3.375 GM in SODIUM CHLORIDE 0.9% 100 ML IVPB SCH ×3 (00:03→16:44)
[2022-02-15] MEDS: PANTOPRAZOLE 40 MG/10 ML VIAL IV SCH (08:35)
--- NOTE | 2022-02-15 11:59 | P.PN ---
Subjective Progress Note Date: 02/15/22 Principal diagnosis: abdominal pain Hospital Course: 41-year-old male with no significant past medical history presenting with abdominal pain. Admitted for severe acute colitis, suspected diverticulitis in the sigmoid colon with free air or evidence of perforation noted on CT abdomen and pelvis. Surgery following. Some physicians has been consulted for medical management. Patient currently on IV Zosyn. Tolerating oral diet. Subjective: Patient seen and examined at bedside. No acute events overnight. He denies any significant abdominal pain. Denies any chest pain, shortness of breath, constipation, urinary complaints. He is having some diarrhea. He is able to tolerate full liquids. Pertinent positives and negatives as discussed above, a complete review of systems was performed and all other systems are negative. Vitals Signs Reviewed. General: nontoxic, no distress, appears at stated age Derm: warm, dry Head: atraumatic, normocephalic, symmetric Eyes: EOMI, no lid lag, anicteric sclera Mouth: no lip lesion, mucus membranes moist Cardiovascular: S1S2 reg, no murmur Lungs: CTA bilateral, no rhonchi, no rales , no accessory muscle use Abdominal: soft, nontender to palpation, no guarding, no appreciable organomegaly Ext: no gross muscle atrophy, no edema, no contractures Neuro: CN II-XI grossly intact, no focal neuro deficits Psych: Alert, oriented, appropriate affect Assessment and Plan: Acute severe colitis Sigmoid diverticulitis with perforation Leukocytosis Abdominal pain -Patient on Zosyn -Surgery following -IV fluids -Able tolerate full liquids, advance as tolerated -Once patient is ready for discharge, can switch IV Zosyn to PO cefdinir and POflagyl No other chronic medical problems DVT prophylaxis -Subcu heparin Thank you for allowing us to participate in the care of this pleasant patient. Do not hesitate to contact us with questions. Someone can be reached from the [facility] hospitalist group all hours of the day at [phone] or via [employer] serve. Objective - Vital Signs Vital signs: Vital Signs Temp 98.8 F 02/15/22 07:44 Pulse 63 02/15/22 07:44 Resp 17 02/15/22 07:44 BP 165/96 02/15/22 07:44 Pulse Ox 96 02/15/22 07:44 FiO2 Intake & Output 02/14/22 02/15/22 02/15/22 18:59 06:59 18:59 Intake Total 200 Balance 200 Intake: Oral 200 Other: # Voids 4 3 - Labs CBC & Chem 7: 02/14/22 07:42 02/13/22 08:22 Labs: Microbiology - Last 24 Hours (Table) 02/12/22 15:45 Blood Culture - Preliminary Blood No Growth after 48 hours 02/12/22 15:30 Blood Culture - Preliminary Blood No Growth after 48 hours
--- NOTE | 2022-02-15 13:50 | P.PN ---
Progress Note - Text Progress Note Date: 02/15/22 Patient feels better today. His left lower quadrant pain is improved. His white count is 10.7. On exam vessels are still. Abdomen soft. Minimal left lower quadrant tenderness. Resolving diverticulitis. We will continue IV antibiotics for another day. We discussed the discharge home tomorrow morning.
[2022-02-16] MEDS: PIPERACILLIN-TAZOBACTAM 3.375 GM in SODIUM CHLORIDE 0.9% 100 ML IVPB SCH ×2 (00:10→08:16)
[2022-02-16 02:03] VITALS: PULSE 60
[2022-02-16 08:14] VITALS: BP 157/85; RESP 18; TEMP 98.8
[2022-02-16] MEDS: HEPARIN SODIUM,PORCINE/PF 5,000 UNIT/0.5 ML SYRINGE SQ SCH (08:15)
[2022-02-16] MEDS: SODIUM CHLORIDE 0.9% 1,000 ML IV SCH (08:17)
[2022-02-16] MEDS: PANTOPRAZOLE 40 MG/10 ML VIAL IV SCH (08:17)
[2022-02-16 09:14] LABS: Basophils # (A) 0.1 k/uL (0-0.2); Basophils % (A) 1 %; Eosinophils # (A) 0.1 k/uL (0-0.7); Eosinophils % (A) 2 %; HCT 46.4 % (39.0-53.0); HGB 16.5 gm/dL (13.0-17.5); Lymphocytes # (A) 1.6 k/uL (1.0-4.8); Lymphocytes % (A) 19 %; MCH 31.9 pg (25.0-35.0); MCHC 35.5 g/dL (31.0-37.0); MCV 89.8 fL (80.0-100.0); Mean Platelet Volume 9.5; Monocytes # (A) 0.6 k/uL (0-1.0); Monocytes % (A) 7 %; Neutrophils % (A) 69 %; Platelet Count 201 k/uL (150-450); RBC 5.17 m/uL (4.30-5.90); RDW 12.3 % (11.5-15.5); WBC 8.7 k/uL (3.8-10.6)
--- NOTE | 2022-02-16 10:44 | P.DS ---
Providers Date of admission: 02/12/22 17:19 Expected date of discharge: 02/16/22 Attending physician: Guillaume Sabillon Consults: 02/13/22 04:42 Consult Physician Routine Consulting Provider: Eros Cameron Consult Reason/Comments: Medical Management Do you want consulting provider notified?: Yes Primary care physician: Stated None Hospital Course: Discharge diagnosis 1. Acute sigmoid diverticulitis of sigmoid colon with perforation Hospital course This is a 41-year-old male who presented to the hospital with complaints of lower abdominal pain in the super pubic area and right lower abdomen greater than left. Computed tomography scan had evidence of diverticulitis of the sigmoid colon with free air. Patient was treated conservatively with IV antibiotics. He has tolerated advancement of diet. His white count has normalized. He remains afebrile. His pain has resolved. He is having bowel movements. He has been up and ambulate. He is stable for discharge. Please refer to chart for any further details. Physician Zipper Slide Attacher note has been reviewed by physician. Signing provider agrees with the documented findings, assessment, and plan of care. Patient Condition at Discharge: Stable Plan - Discharge Summary Discharge Rx Participant: No New Discharge Prescriptions: New Levofloxacin [Levaquin] 500 mg PO DAILY 10 Days #10 tab Discharge Medication List Levofloxacin [Levaquin] 500 mg PO DAILY 10 Days #10 tab 02/16/22 [Rx] Follow up Appointment(s)/Referral(s): Guillaume Sabillon MD [Medical Doctor] - 02/26/22 11:00 am (needs authorization form insurence) None,Stated [Primary Care Provider] - 1-2 days Activity/Diet/Wound Care/Special Instructions: Diet: Soft/Edwards diet and then advance as tolerated. Avoid seeds or nuts Activity: as tolerated Discharge Disposition: HOME SELF-CARE
--- NOTE | 2022-02-16 10:50 | P.PN ---
Subjective Progress Note Date: 02/16/22 Principal diagnosis: abdominal pain Hospital Course: 41-year-old male with no significant past medical history presenting with abdominal pain. Admitted for severe acute colitis, suspected diverticulitis in the sigmoid colon with free air or evidence of perforation noted on CT abdomen and pelvis. Surgery following. Some physicians has been consulted for medical management. Patient currently on IV Zosyn. Tolerating oral diet. Subjective: Patient seen and examined at bedside. No acute events overnight. He denies any significant abdominal pain. Denies any chest pain, shortness of breath, constipation, urinary complaints. He is having some diarrhea. He is able to tolerate full liquids. Pertinent positives and negatives as discussed above, a complete review of systems was performed and all other systems are negative. Vitals Signs Reviewed. General: nontoxic, no distress, appears at stated age Derm: warm, dry Head: atraumatic, normocephalic, symmetric Eyes: EOMI, no lid lag, anicteric sclera Mouth: no lip lesion, mucus membranes moist Cardiovascular: S1S2 reg, no murmur Lungs: CTA bilateral, no rhonchi, no rales , no accessory muscle use Abdominal: soft, nontender to palpation, no guarding, no appreciable organomegaly Ext: no gross muscle atrophy, no edema, no contractures Neuro: CN II-XI grossly intact, no focal neuro deficits Psych: Alert, oriented, appropriate affect Assessment and Plan: Acute severe colitis Sigmoid diverticulitis with perforation Leukocytosis Abdominal pain -Patient on Zosyn -Surgery following -IV fluids -Able tolerate full liquids, advance as tolerated -Once patient is ready for discharge, can switch IV Zosyn to PO cipro 500 q12h and PO flagyl 500 q8h for 10 days No other chronic medical problems DVT prophylaxis -Subcu heparin Patient is medically optimized for discharge home once cleared by surgery. Thank you for allowing us to participate in the care of this pleasant patient. Do not hesitate to contact us with questions. Someone can be reached from the [facility] hospitalist group all hours of the day at [phone] or via [employer]. Objective - Vital Signs Vital signs: Vital Signs Temp 98.8 F 02/16/22 08:00 Pulse 60 02/16/22 08:00 Resp 18 02/16/22 08:00 BP 157/85 02/16/22 08:00 Pulse Ox 94 L 02/16/22 08:00 FiO2 Intake & Output 02/15/22 02/16/22 02/16/22 18:59 06:59 18:59 Other: # Voids 3 3 1 - Labs CBC & Chem 7: 02/16/22 08:16 02/13/22 08:22 Labs: Microbiology - Last 24 Hours (Table) 02/12/22 15:45 Blood Culture - Preliminary Blood No Growth after 72 hours 02/12/22 15:30 Blood Culture - Preliminary Blood No Growth after 72 hours
== END 2022-02-16 12:01 | disposition home or self-care (01) | DRG 392 ==
LOC: EC 14:40 → 4SSUR 17:19
PROVIDERS: ADMIT Surgery; ATTEND Surgery
DX: K57.20 Diverticulitis of large intestine with perforation and abscess without bleeding (principal); K52.9 Noninfective gastroenteritis and colitis, unspecified; K59.00 Constipation, unspecified; Z20.822 Contact with and (suspected) exposure to COVID-19; Z87.442 Personal history of urinary calculi; Z87.891 Personal history of nicotine dependence; Z28.311 Partially vaccinated for COVID-19; Z88.6 Allergy status to analgesic agent; Z88.2 Allergy status to sulfonamides
CPT/HCPCS: 36415; 74176; 80048; 80053; 81001; 82150; 83605; 83690; 85025; 85610; 85730; 87040; 87636; 96361; 96365; 96366; 96375; 99284